=== PATIENT | female | born 1985 | race Caucasian/White ===

== ENCOUNTER 2020-11-20 13:19 | Emergency (ER) | payer OTHER ==
[2020-11-20] MEDS ORDERED: Lidocaine 1% PF 2 ML SDV INJECT ONE ×2 (13:47→14:44)
--- NOTE | 2020-11-20 13:47 | EDM.PDOC ---
ED HPI GENERAL MEDICAL PROBLEM - General Chief Complaint: Laceration Stated Complaint: RIGHT ANKEL CUT NEED STITCHES Time Seen by Provider: 11/20/20 13:43 Source of Information: Reports: Patient History Limitations: Reports: No Limitations - History of Present Illness INITIAL COMMENTS - FREE TEXT/NARRATIVE: HISTORY AND PHYSICAL: History of present illness: Patient is a 35-year-old female who presents to the emergency department after catching her ankle between an object and a mattress cart at [facility] while working today. She obtained a laceration on her lateral right ankle. She cleaned the area and put a pressure dressing on it prior to arrival. She states that her pain is minimal. She is unsure of when her last tetanus was. Patient denies any fever, chills, headache, change in vision, syncope or near syncope. Denies any chest pain, back pain, shortness of breath or cough. Denies any abdominal pain, nausea, vomiting, diarrhea, constipation or dysuria. Has not noted any blood in urine or stool. Patient has been eating and drinking appropriately. Review of systems: As per history of present illness and below otherwise all systems reviewed and negative. Past medical history: As per history of present illness and as reviewed below otherwise noncontributory. Surgical history: As per history of present illness and as reviewed below otherwise noncontribu tory. Social history: See social history for further information Family history: As per history of present illness and as reviewed below otherwise noncontributory. Physical exam: General: Well developed and well nourished. Alert and orientated x 3. Nontoxic in appearance and in no acute distress. Vital signs are stable and have been reviewed by me. Nursing notes were reviewed. HEENT: Atraumatic, normocephalic, pupils equal and reactive bilaterally, negative for conjunctival pallor or scleral icterus, mucous membranes moist, TMs normal bilaterally, throat clear, neck supple, nontender, trachea midline. No drooling or trismus noted. No meningeal signs. No hot potato voice noted. Lungs: Clear to auscultation bilaterally. No wheezes, rales, or rhonchi. Chest nontender. Normal work of breathing, no accessory muscles used. Heart: S1S2, regular rate and rhythm without overt murmur, gallops, or rubs. No JVD. No peripheral edema Abdomen: Soft, nondistended, nontender. Normoactive bowel sounds. Negative for masses or costovertebral tenderness. Skin: 1 cm linear laceration. No active bleeding. Skin Warm, dry. No lesions or rashes noted. Hematologic: No petechiae or purpra. Mucosa appropriate color and normal nail bed color and refill. Extremities: Atraumatic, moves all extremities per self without difficulty or deficits, negative for cords or calf pain. Neurovascular unremarkable. Neuro: Awake, alert, oriented. Cranial nerves II through XII unremarkable. Cerebellum unremarkable. Motor and sensory unremarkable throughout. Exam nonfocal. Psychiatric: Mood and affect are appropriate. Normal thought process. Answering questions appropriately. Notes: *This patient was seen and evaluated during the 2019 SARS-CoV-2 novel coronavirus pandemic period. Community viral transmission is ongoing at time of this encounter and the emergency department is operating under pandemic response procedures. As stated above the patient is here for a right ankle lateral laceration. As domingo jolly is unsure of her tetanus I have ordered a tetanus. I have ordered an x-ray to ensure that we do not have a fracture. I will suture the wound. Please see procedure note. The patient tolerated the procedure well. I will discharge the patient with appropriate wound care instructions. I have talked with the patient about today's findings, in addition to providing specific details for plan of care. Reassessment at the time of disposition demonstrates that the patient is in no acute distress. The patient is stable for discharge, counseling was provided and we discussed in great detail signs and symptoms that would prompt them to return to the Emergency Department. Medication, follow up and supportive care measures were reviewed and discussed. Voices understanding and is agreeable to plan of care. Denies any further questions or concerns at this time. Diagnostics: Right ankle x-ray Therapeutics: Lidocaine 1% Impression: Laceration Plan: 1. Keep the area clean and dry. Continue to monitor for signs of infection. Sutures to be removed in 7-10 days. 2. Tylenol and/or ibuprofen as needed for pain management. 3. Please follow-up with your primary care provider in the next 1-2 days. Return to the ED as needed and as discussed. Definitive disposition and diagnosis as appropriate pending reevaluation and review of above. Right ankle Pain Score (Numeric/FACES): 2 - Related Data Allergies Allergy/AdvReac Type Severity Reaction Status Date / Time No Known Allergies Allergy Verified 11/20/20 14:03 Home Meds: Home Meds ALPRAZolam [Xanax] 0.25 mg PO ASDIRECTED PRN 11/20/20 [History] Esomeprazole [NexIUM] 20 mg PO DAILY 11/20/20 [History] FLUoxetine [PROzac] 10 mg PO DAILY 11/20/20 [History] Fluticasone Propionate [Flonase Allergy Relief] 1 dose IN ASDIRECTED 11/20/20 [History] valACYclovir [Valtrex] 1 tab PO DAILY 11/20/20 [History] ED ROS GENERAL - Review of Systems Review Of Systems: Comprehensive ROS is negative, except as noted in HPI. ED EXAM, SKIN/RASH Exam: See Below (See dictation) ED SKIN PROCEDURES - Laceration/Wound Repair Right Lateral Ankle Appearance: Superficial Distal NVT: Neuro & Vascular Intact Anesthetic Type: Local Local Anesthesia - Lidocaine (Xylocaine): 1% Plain Local Anesthetic Volume: 2cc Skin Prep: Chlorhexidine (Hibiciens) Saline Irrigation (cc's): 200 Exploration/Debridement/Repair: Wound Explored, In a Bloodless Field, No Foreign Material Found Closed with: Sutures Lac/Wound length In cm: 1 Suture Size: 4-0 # of Sutures: 4 Suture Type: Prolene Course - Vital Signs Last Recorded V/S: Last Vital Signs Temp 97.0 F 11/20/20 14:06 Pulse 78 11/20/20 15:19 Resp 16 11/20/20 15:19 BP 115/78 11/20/20 15:19 Pulse Ox 98 11/20/20 15:19 - Orders/Labs/Meds Meds: Medications Discontinued Medications Generic Name Dose Route Start Last Admin Trade Name Jevonq PRN Reason Stop Dose Admin Bacitracin 1 dose 11/20/20 15:07 11/20/20 15:16 Bacitracin Oint 1 Gm U/D Packet TOP 11/20/20 15:08 1 dose ONETIME ONE Administration Diphtheria/Tetanus/Acell Pertussis 0.5 ml 11/20/20 13:50 11/20/20 13:57 Diphtheria,Pertussis(Acell),Tetanus Vaccine 0.5 Ml Syringe IM 11/20/20 13:51 0.5 ml .ONCE ONE Administration Lidocaine HCl Confirm 11/20/20 14:47 11/20/20 15:19 Xylocaine-Mpf 1% Administered 11/20/20 14:48 Not Given Dose 2 mls @ as directed .ROUTE .STK-MED ONE Lidocaine HCl 2 ml 11/20/20 13:47 11/20/20 13:57 Lidocaine 1% Pf 2 Ml Sdv INJECT 11/20/20 13:48 2 ml ONETIME ONE Administration Lidocaine HCl 2 ml 11/20/20 14:44 11/20/20 14:47 Lidocaine 1% Pf 2 Ml Sdv INJECT 11/20/20 14:45 2 ml ONETIME ONE Administration Departure - Departure Time of Disposition: 15:08 Disposition: Home, Self-Care 01 Condition: Good Clinical Impression: Laceration - Discharge Information *PRESCRIPTION DRUG MONITORING PROGRAM REVIEWED*: Not Applicable *COPY OF PRESCRIPTION DRUG MONITORING REPORT IN PATIENT BALWINDER: Not Applicable Instructions: Laceration Care, Adult Referrals: Joe Hairston MD [Primary Care Provider] - Forms: ED Department Discharge Additional Instructions: The following information is given to patients seen in the emergency department who are being discharged to home. This information is to outline your options for follow-up care. We provide all patients seen in our emergency department wi th a follow-up referral. The need for follow-up, as well as the timing and circumstances, are variable depending upon the specifics of your emergency department visit. If you don't have a primary care physician on staff, we will provide you with a referral. We always advise you to contact your personal physician following an emergency department visit to inform them of the circumstance of the visit and for follow-up with them and/or the need for any referrals to a consulting specialist. The emergency department will also refer you to a specialist when appropriate. This referral assures that you have the opportunity for follow-up care with a specialist. All of these measure are taken in an effort to provide you with optimal care, which includes your follow-up. Under all circumstances we always encourage you to contact your private physician who remains a resource for coordinating your care. When calling for follow-up care, please make the office aware that this follow-up is from your recent emergency room visit. If for any reason you are refused follow-up, please contact the [facility] Emergency Department at and asked to speak to the emergency department charge nurse. [facility] [address] [place] [address] [facility] [address] [place] [id number] Plan: 1. Keep the area clean and dry. Continue to monitor for signs of infection. Sutures to be removed in 7-10 days. 2. Tylenol and/or ibuprofen as needed for pain management. 3. Please follow-up with your primary care provider in the next 1-2 days. Return to the ED as needed and as discussed. Sepsis Event Note (ED) - Focused Exam Vital Signs: Vital Signs Temp Pulse Resp BP Pulse Ox 11/20/20 15:19 78 16 115/78 98 11/20/20 14:06 97.0 F 78 16 122/73 97
[2020-11-20] MEDS ORDERED: Diphtheria,Pertussis(Acell),Tetanus Vaccine 0.5 ML Syringe IM ONE (13:50)
[2020-11-20] MEDS ORDERED: Lidocaine 1% 2 ML ONE (14:47)
--- NOTE | 2020-11-20 14:47 | CR ---
INDICATION: Trauma. TECHNIQUE: Three views of the right ankle. COMPARISON: None. IMPRESSION: No acute fracture is identified. Ankle mortise is symmetric. Dictated by Marino Armenta MD @ 11/20/2020 2:44:34 PM Dictated by: Marino Armetna MD @ 11/20/2020 14:44:50 (Electronically Signed)
[2020-11-20] MEDS ORDERED: Bacitracin Oint 1 GM U/D Packet TOP ONE (15:07)
== END 2020-11-20 15:20 | disposition home or self-care (01) ==
LOC: MW.ED 13:19
DX: S91.011A Laceration without foreign body, right ankle, initial encounter (principal); Z23 Encounter for immunization; W26.8XXA Contact with other sharp object(s), not elsewhere classified, initial encounter
CPT/HCPCS: 12001; 73610-26-RT; 73610-RT; 90471; 90715; 99283; 99283-25

== ENCOUNTER 2020-11-30 12:05 | Emergency (ER) | payer OTHER | END 2020-11-30 13:13 | disposition left against medical advice (07) | LOC: MW.ED 12:05 | DX: Z48.01 Encounter for change or removal of surgical wound dressing (principal); Z53.21 Procedure and treatment not carried out due to patient leaving prior to being seen by health care provider ==

== ENCOUNTER 2021-06-05 07:49 | Day surgery (SDC) | payer BC ==
[2021-06-05] MEDS ORDERED: Lactated Ringers 1,000 ML IV SCH (08:30)
[2021-06-05] MEDS ORDERED: Naloxone 0.4 MG/ML SDV IVPUSH PRN (09:05)
[2021-06-05] MEDS ORDERED: Ondansetron 4 MG/2 ML SDV IVPUSH PRN (09:05)
[2021-06-05] MEDS ORDERED: HYDROmorphone 1 MG/ML Syringe IVPUSH PRN (09:05)
[2021-06-05] MEDS ORDERED: Albuterol 0.083% 2.5 MG/3 ML Neb Soln NEB PRN (09:05)
[2021-06-05] MEDS ORDERED: fentaNYL 100 MCG/2 ML SDV IVPUSH PRN (09:05)
[2021-06-05] MEDS ORDERED: Metoclopramide 10 MG/2 ML SDV IVPUSH PRN (09:05)
--- NOTE | 2021-06-05 09:05 | PCM.PREANE ---
Preanesthetic Assessment - Procedure Proposed Procedure: Hysteroscopy, D&C - Anesthesia/Transfusion/Family Hx Anesthesia History: Prior Anesthesia Without Reaction Family History of Anesthesia Reaction: No Transfusion History: No Prior Transfusion(s) - Review of Systems General: No Symptoms Pulmonary: No Symptoms (Quit smoking >10yrs ago) Cardiovascular: No Symptoms Gastrointestinal: No Symptoms (GERD well contolled) Neurological: No Symptoms Other: Reports: None - Physical Assessment NPO Status Date: 06/04/21 NPO Status Time: 08:30 Vital Signs: Last Vital Signs Temp 97.9 F 06/05/21 08:18 Pulse 68 06/05/21 08:18 Resp 16 06/05/21 08:18 BP 123/72 06/05/21 08:18 Pulse Ox 96 06/05/21 08:18 Height: 5 ft 10.5 in Weight: 83.915 kg ASA Class: 2 Mental Status: Alert & Oriented x3 Airway Class: Mallampati = 2 Dentition: Reports: Normal Dentition (Permanent retainer on bottom) Thyro-Mental Finger Breadths: 3 Mouth Opening Finger Breadths: 3 ROM/Head Extension: Full Lungs: Clear to Auscultation, Normal Respiratory Effort Cardiovascular: Regular Rate, Regular Rhythm - Lab Values: Laboratory Last Values Hgb 14.5 g/dL (12.0-16.0) 06/01/21 15:09 Hct 42.3 % (36.0-46.0) 06/01/21 15:09 HCG, Quant 1.0 mIU/mL 06/01/21 15:09 - Allergies Allergies/Adverse Reactions: Allergies Allergy/AdvReac Type Severity Reaction Status Date / Time No Known Allergies Allergy Verified 05/30/21 09:59 - Acknowledgements Anesthesia Type Planned: General Anesthesia Pt an Appropriate Candidate for the Planned Anesthesia: Yes Alternatives and Risks of Anesthesia Discussed w Pt/Guardian: Yes Pt/Guardian Understands and Agrees with Anesthesia Plan: Yes PreAnesthesia Questionnaire HEENT History: Reports: Other (See Below) Other HEENT History: has lower permanent dental retainer Cardiovascular History: Reports: None Respiratory History: Reports: None Gastrointestinal History: Reports: GERD Other Genitourinary History: frequent UTI's in the past- not recently [employer] History: Reports: None Musculoskeletal History: Reports: None Neurological History: Reports: Concussion, Other (See Below) Other Neuro History: hx of motion sickness Psychiatric History: Reports: Anxiety Endocrine/Metabolic History: Reports: None Hematologic History: Reports: None Immunologic History: Reports: None Oncologic (Cancer) History: Reports: None Dermatologic History: Reports: Eczema, Other (See Below) Other Dermatologic History: genital herpes - Infectious Disease History Infectious Disease History: Reports: None - Past Surgical History Head Surgeries/Procedures: Reports: None HEENT Surgical History: Reports: None GI Surgical History: Reports: Cholecystectomy Female Surgical History: Reports: None - SUBSTANCE USE Tobacco Use Status *Q: Former Tobacco User Tobacco Use Within Last Twelve Months: No Recreational Drug Use History: Yes Recreational Drug Type: Reports: Marijuana/Hashish Recreational Drug Route: Inhaled - HOME MEDS Home Medications: Home Meds ALPRAZolam [Xanax] 0.25 mg PO TID PRN 11/20/20 [History] Esomeprazole [NexIUM] 40 mg PO DAILY 11/20/20 [History] FLUoxetine [PROzac] 20 mg PO DAILY 11/20/20 [History] valACYclovir [Valtrex] 500 mg PO DAILY 11/20/20 [History] L.acidoph,Paracasei, B.lactis [Probiotic] 1 cap PO DAILY 05/30/21 [History] Multivitamin with Minerals [Hair, Skin and Nails] 1 tab PO DAILY 05/30/21 [History] - CURRENT (IN HOUSE) MEDS Current Meds: Current Medications Lactated Ringer's (Ringers, Lactated) 1,000 mls @ 125 mls/hr IV ASDIRECTED [facility] Last Admin: 06/05/21 08:27 Dose: 125 mls/hr Documented by:
[2021-06-05] MEDS ORDERED: Lidocaine 2% 5 ML SDV ONE (09:33)
[2021-06-05] MEDS ORDERED: fentaNYL 100 MCG/2 ML SDV ONE ×2 (09:33→10:09)
[2021-06-05] MEDS ORDERED: Midazolam 1 MG/ML 2 ML SDV ONE (09:33)
[2021-06-05] MEDS ORDERED: Propofol 200 MG/20 ML SDV ONE (09:33)
[2021-06-05] MEDS ORDERED: Ketorolac 30 MG/ML SDV ONE (09:33)
[2021-06-05] MEDS ORDERED: Dexamethasone 4 MG/ML 5 ML MDV ONE (09:33)
[2021-06-05] MEDS ORDERED: Ondansetron 4 MG/2 ML SDV ONE (09:33)
--- NOTE | 2021-06-05 10:34 | PCM.OPNOTE ---
- General Post-Op/Procedure Note Date of Surgery/Procedure: 06/05/21 Operative Procedure(s): Operative hysteroscopy, polypectomy, fractional dilatation and curettage Findings: Uterus anterverted 9 weeks size, sounds to 9 cm. 8 mm polyp in right lower posterior endometrium. Bilateral tubal ostia identified. Pre Op Diagnosis: endometrial polyp Post-Op Diagnosis: Same Anesthesia Technique: General LMA Primary Surgeon: Lilli Quevedo Anesthesia Provider: Sunil Hairston Immigration Lawyer: Jazzmine Worthy Pathology: endometrial polyp and directed biopsies; endometrial curettings; endocervical curettings. Fluid Replacement, Intraop: 1,000 EBL in mLs: 5 (hysteroscopic deficit 150 ml NS) Complications: None Known Condition: Good
--- NOTE | 2021-06-05 10:40 | PCM.POSTAN ---
POST ANESTHESIA ASSESSMENT - MENTAL STATUS Mental Status: Alert, Oriented - VITAL SIGNS Vital Signs: Last Vital Signs Temp 98.6 F 06/05/21 10:33 Pulse 60 06/05/21 10:38 Resp 9 L 06/05/21 10:38 BP 91/53 L 06/05/21 10:38 Pulse Ox 97 06/05/21 10:38 - RESPIRATORY Respiratory Status: Respiratory Rate WNL, Airway Patent, O2 Saturation Stable - CARDIOVASCULAR CV Status: Pulse Rate WNL, Blood Pressure Stable - GASTROINTESTINAL GI Status: No Symptoms - PAIN Pain Score: 3 - POST OP HYDRATION Hydration Status: Adequate & Stable
--- NOTE | 2021-06-05 11:00 | PCM48HPAN ---
Post Anesthesia Note - EVALUATION WITHIN 48HRS OF ANESTHETIC Vital Signs in Normal Range: Yes Patient Participated in Evaluation: Yes Respiratory Function Stable: Yes Airway Patent: Yes Cardiovascular Function Stable: Yes Hydration Status Stable: Yes Pain Control Satisfactory: Yes Nausea and Vomiting Control Satisfactory: Yes Mental Status Recovered: Yes Vital Signs: Last Vital Signs Temp 98.6 F 06/05/21 10:33 Pulse 71 06/05/21 10:53 Resp 11 L 06/05/21 10:53 BP 105/68 06/05/21 10:53 Pulse Ox 97 06/05/21 10:53 - COMMENTS/OBSERVATIONS Free Text/Narrative:: Pt doing well post-op. VSS. No apparent anesthetic complications. Dr. Sunil Hairston
--- NOTE | 2021-06-05 11:30 | OR ---
SURGEON: Lilli Quevedo M.D. DATE OF PROCEDURE: 06/05/2021 PREOPERATIVE DIAGNOSIS: Endometrial polyp. POSTOPERATIVE DIAGNOSIS: Endometrial polyp. PROCEDURES: Hysteroscopic polypectomy, fractional dilation and curettage. PRIMARY SURGEON: Lilli Quevedo M.D. ANESTHESIA: General LMA. ESTIMATED BLOOD LOSS: Less than 5 mL. FINDINGS: Uterus anteverted, sounds to 9 cm. There is a posterior wall lower uterine segment 8 mm polyp. Bilateral tubal ostia were identified. There were no other lesions. COMPLICATIONS: None known. DISPOSITION: Stable to Recovery. HYSTEROSCOPIC DEFICIT: 150 mL. IV FLUIDS: 1000 mL. PATHOLOGY SPECIMENS: Endometrial polyp and directed biopsies, endometrial curettings, and endocervical curettings. BRIEF HISTORY: This is a 36-year-old female. She has suffered from abnormal uterine bleeding and saline ultrasound revealed an 8 mm polyp in the right lower uterine segment and she was counseled regarding recommendation to have the polyp removed hysteroscopically. Surgical risks were reviewed including bleeding, infection, uterine perforation with injury to surrounding organs, risk of fluid overload, risk of thromboembolic event, and anesthesia risk were discussed. Understanding all these risks, she does desire to proceed. DESCRIPTION OF PROCEDURE: With the patient in dorsal lithotomy position, under adequate LMA analgesia, the perineum and vagina were prepped with Betadine and draped in usual fashion for vaginal surgery. SCDs were placed. The bladder had been drained. An appropriate time-out was held. Bimanual examination revealed an anteverted 9- week size uterus. Speculum was placed in the vagina. The anterior lip of the cervix was grasped with a tenaculum. The uterus sounded to 9 cm. Cervix was dilated to 7 mm Hegar dilator. The hysteroscope utilized for the MyoSure was placed into the uterine cavity. There was excellent visualization. Bilateral tubal ostia were identified. The polyp in the right lower quadrant of the uterine endometrium was identified and the MyoSure was utilized to remove the polyp under direct visualization without any difficulty as well as biopsy other prominent areas of endometrium. This being completed, sharp endocervical curettage was performed and collected for Cytobrush. After the hysteroscope had been removed from the uterus, sharp endometrial curettage was then performed with a small amount of tissue obtained. The speculum was removed from the vagina. Final sponge, needle, and instrument counts were reported as correct. There were no known complications. The patient was transferred to Recovery in good condition. DERRICK JAIN /[id number]
== END 2021-06-05 13:03 | disposition home or self-care (01) ==
LOC: MW.SDS 07:49
PROVIDERS: ATTEND Obstetrics & Gynecology
DX: N84.0 Polyp of corpus uteri (principal); K21.9 Gastro-esophageal reflux disease without esophagitis; Z79.899 Other long term (current) drug therapy; Z98.890 Other specified postprocedural states; Z87.891 Personal history of nicotine dependence
CPT/HCPCS: 36415; 58558; 84702; 85014; 85018; J1100; J1885; J2250; J2405; J2704; J3010; J7120; 00952

== ENCOUNTER 2023-11-20 10:26 | Day surgery (SDC) | payer OTHER ==
[~2023-11-20 10:26] MED LIST: Albuterol 0.083% 2.5 MG/3 ML Neb Soln NEB PRN; HYDROmorphone 1 MG/ML Syringe IVPUSH PRN; Metoclopramide 10 MG/2 ML SDV IVPUSH PRN; Morphine 2 MG/ML SYRINGE IVPUSH PRN; Naloxone 0.4 MG/ML SDV IVPUSH PRN; Scopalamine 1mg/3day Transdermal Patch TOP ONE; droPERidol 5 MG/2 ML SDV IVPUSH PRN
[2023-11-20] MEDS ORDERED: Ketorolac 30 MG/ML SDV ONE ×2 (10:54→11:01)
[2023-11-20] MEDS ORDERED: fentaNYL 100 MCG/2 ML SDV ONE (10:54)
[2023-11-20] MEDS ORDERED: propofoL 50 ML ONE (10:54)
[2023-11-20] MEDS ORDERED: Morphine 10 MG/ML SDV ONE (10:54)
[2023-11-20] MEDS ORDERED: Ondansetron 4 MG/2 ML SDV ONE (10:54)
[2023-11-20] MEDS: Lactated Ringers 1,000 ML IV SCH (10:56)
[2023-11-20] MEDS ORDERED: Lidocaine 2% 5 ML SDV ONE (10:56)
[2023-11-20] MEDS ORDERED: Metoclopramide 10 MG/2 ML SDV ONE (11:04)
[2023-11-20] MEDS: Ondansetron 4 MG/2 ML SDV IVPUSH PRN (12:14)
[2023-11-20] MEDS: fentaNYL 50 MCG/ML SDV IVPUSH PRN (12:14)
[2023-11-20] MEDS ORDERED: oxyCODONE 5 MG Tab ONE (13:19)
[2023-11-20] MEDS: oxyCODONE 5 MG Tab PO ONE (13:21)
[2023-11-20 15:01] LABS: HEMATOCRIT 43.2 % (37.0-47.0); HEMOGLOBIN 15.1 g/dL (12.0-16.0); IMMATURE GRAN ABSOLUTE AUTO 0.02 K/uL (0.00-0.05); IMMATURE GRAN PERCENT AUTO 0.3 % (0.0-0.4); MEAN CORPUSCULAR HEMOGLOBIN 30.3 pg (28.0-32.0); MEAN CORPUSCULAR VOLUME 86.7 fL (83.0-99.0); MEAN PLATELET VOLUME 9.8 fL (9.4-12.3); PLATELET COUNT,PLT 262 K/uL (150-400); RED BLOOD CELL COUNT 4.98 M/uL (4.10-5.30); WHITE BLOOD CELL COUNT,WBC 6.15 K/uL (3.9-11.3)
== END 2023-11-20 14:35 | disposition home or self-care (01) ==
LOC: MW.SDS 10:26
PROVIDERS: ATTEND Obstetrics & Gynecology
DX: O02.1 Missed abortion (principal); K21.9 Gastro-esophageal reflux disease without esophagitis; F32.A Depression, unspecified; F41.9 Anxiety disorder, unspecified; Z79.899 Other long term (current) drug therapy
CPT/HCPCS: 36415; 59820; 85027; 86850; 86900; 86901; A9270; J0131; J1885; J2270; J2405; J2704; J2765; J3010; J7120; 01965; J3490

== ENCOUNTER 2024-01-20 09:06 | Emergency (ER) | payer OTHER ==
[2024-01-20] MEDS: Lidocaine 1% with EPINEPHrine 1:100,000 10 ML MDV INJECT ONE (09:17)
[2024-01-20] MEDS: Bacitracin Oint 1 GM U/D Packet TOP ONE (09:17)
[2024-01-20] MEDS: Acetaminophen 500 MG Tab PO ONE (09:46)
[2024-01-20] MEDS: Ibuprofen 600 MG Tab PO ONE (09:46)
== END 2024-01-20 10:20 | disposition home or self-care (01) ==
LOC: MW.ED 09:06
DX: S61.012A Laceration without foreign body of left thumb without damage to nail, initial encounter (principal); S61.412A Laceration without foreign body of left hand, initial encounter; Z79.899 Other long term (current) drug therapy; Z90.49 Acquired absence of other specified parts of digestive tract; Z90.710 Acquired absence of both cervix and uterus; W26.8XXA Contact with other sharp object(s), not elsewhere classified, initial encounter; Y93.89 Activity, other specified
CPT/HCPCS: 12002; 99282; A9270; J3490

== ENCOUNTER 2024-01-28 08:50 | Emergency (ER) | payer OTHER | END 2024-01-28 09:16 | disposition left against medical advice (07) | LOC: MW.ED 08:50 | DX: Z53.21 Procedure and treatment not carried out due to patient leaving prior to being seen by health care provider (principal) ==

== ENCOUNTER 2024-04-13 07:16 | Day surgery (SDC) | payer OTHER ==
[2024-04-12 09:30] LABS: HEMATOCRIT 41.1 % (37.0-47.0); HEMOGLOBIN 13.9 g/dL (12.0-16.0); MEAN CORPUSCULAR HEMOGLOBIN 30.2 pg (28.0-32.0); MEAN CORPUSCULAR HGB CONC 33.8 g/dL (32.0-36.0); MEAN CORPUSCULAR VOLUME 89.2 fL (83.0-99.0); PLATELET COUNT,PLT 214 K/uL (150-400); RED BLOOD CELL COUNT 4.61 M/uL (4.10-5.30); WHITE BLOOD CELL COUNT,WBC 4.67 K/uL (3.9-11.3)
[2024-04-13] MEDS ORDERED: Naloxone 0.4 MG/ML SDV IVPUSH PRN (07:37)
[2024-04-13] MEDS ORDERED: Phenylephrine HCl In 0.9% NaCl 1 MG/10 ML Syringe IVPUSH PRN (07:37)
[2024-04-13] MEDS ORDERED: HYDROmorphone 1 MG/ML Syringe IVPUSH PRN (07:37)
[2024-04-13] MEDS ORDERED: Ondansetron 4 MG/2 ML SDV IVPUSH PRN (07:37)
[2024-04-13] MEDS ORDERED: Morphine 2 MG/ML SYRINGE IVPUSH PRN (07:37)
[2024-04-13] MEDS ORDERED: Albuterol 0.083% 2.5 MG/3 ML Neb Soln NEB PRN (07:37)
[2024-04-13] MEDS ORDERED: Metoclopramide 10 MG/2 ML SDV IVPUSH PRN (07:37)
[2024-04-13] MEDS ORDERED: Propofol 200 MG/20 ML SDV ONE (07:43)
[2024-04-13] MEDS ORDERED: fentaNYL 100 MCG/2 ML SDV ONE (07:43)
[2024-04-13] MEDS ORDERED: Midazolam 1 MG/ML 2 ML SDV ONE (07:44)
[2024-04-13] MEDS ORDERED: Lidocaine 2% 5 ML SDV ONE (07:44)
[2024-04-13] MEDS: Lactated Ringers 1,000 ML IV SCH (07:48)
[2024-04-13] MEDS ORDERED: Ketorolac 30 MG/ML SDV ONE (08:45)
[2024-04-13] MEDS ORDERED: Ondansetron 4 MG/2 ML SDV ONE (08:45)
[2024-04-13] MEDS ORDERED: Dexamethasone 4 MG/ML 5 ML MDV ONE (08:54)
[2024-04-13] MEDS: fentaNYL 50 MCG/ML SDV IVPUSH PRN (09:53)
== END 2024-04-13 10:40 | disposition home or self-care (01) ==
LOC: MW.SDS 07:16
PROVIDERS: ATTEND Obstetrics & Gynecology
DX: N96 Recurrent pregnancy loss (principal); K21.9 Gastro-esophageal reflux disease without esophagitis; F32.A Depression, unspecified; F41.9 Anxiety disorder, unspecified; Z87.891 Personal history of nicotine dependence; Z79.899 Other long term (current) drug therapy
CPT/HCPCS: 36415; 58558; 84703; 85027; J0131; J1100; J1885; J2250; J2405; J2704; J3010; J7120; C1729; J3490

== ENCOUNTER 2024-11-12 09:48 | Day surgery (SDC) | payer OTHER ==
[~2024-11-12 09:48] MED LIST changes: +Ondansetron 4 MG/2 ML SDV IVPUSH PRN; +Phenylephrine HCl In 0.9% NaCl 1 MG/10 ML Syringe IVPUSH PRN; -Scopalamine 1mg/3day Transdermal Patch TOP ONE; -droPERidol 5 MG/2 ML SDV IVPUSH PRN; +fentaNYL 50 MCG/ML SDV IVPUSH PRN
[2024-11-12 10:24] LABS: HEMATOCRIT 37.8 % (37.0-47.0); MEAN CORPUSCULAR HGB CONC 34.4 g/dL (32.0-36.0); MEAN CORPUSCULAR VOLUME 87.3 fL (83.0-99.0); MEAN PLATELET VOLUME 10.4 fL (9.4-12.3); PLATELET COUNT,PLT 212 K/uL (150-400); RED BLOOD CELL COUNT 4.33 M/uL (4.10-5.30); WHITE BLOOD CELL COUNT,WBC 5.95 K/uL (3.9-11.3)
[2024-11-12] MEDS: Lactated Ringers 1,000 ML IV SCH (10:32)
[2024-11-12] MEDS ORDERED: Lidocaine 2% 11 ML Jelly Filled Syringe ONE (10:50)
[2024-11-12] MEDS ORDERED: fentaNYL 100 MCG/2 ML SDV ONE ×2 (10:50→11:30)
[2024-11-12] MEDS ORDERED: propofoL 500 MG/50 ML 50 ML ONE (10:50)
[2024-11-12] MEDS ORDERED: Propofol 200 MG/20 ML SDV ONE (10:50)
[2024-11-12] MEDS ORDERED: Dexamethasone 4 MG/ML 5 ML MDV ONE (10:53)
[2024-11-12] MEDS ORDERED: Ondansetron 4 MG/2 ML SDV ONE (10:53)
[2024-11-12] MEDS ORDERED: Famotidine 20 MG/2 ML SDV ONE (11:08)
[2024-11-12] MEDS ORDERED: Rocuronium Bromide 50 MG/5 ML Syringe ONE (11:10)
[2024-11-12] MEDS ORDERED: Ketorolac 30 MG/ML SDV ONE (11:29)
[2024-11-12] MEDS ORDERED: Sugammadex Sodium 200 MG/2 ML VIAL IV ONE (11:39)
== END 2024-11-12 14:20 | disposition home or self-care (01) ==
LOC: MW.SDS 09:48
PROVIDERS: ATTEND Obstetrics & Gynecology
DX: O02.1 Missed abortion (principal); K21.9 Gastro-esophageal reflux disease without esophagitis; Z87.891 Personal history of nicotine dependence; Z79.899 Other long term (current) drug therapy
CPT/HCPCS: 36415; 59820; 76998; 85027; A9270; J1100; J1885; J2405; J2704; J3010; J7120; J3490